=== PATIENT | female | born 1960 | race Two or more races ===

== ENCOUNTER → 2024-04-15 | Outpatient (CLI) | payer OTHER, SELFPAY ==
--- NOTE | 2024-04-15 07:00 | XR_ITS ---
Examination: MRI cervical spine without intravenous contrast Date and time of exam: April 15, 2024 0713 hrs. Indications: Left-sided neck pain radiating down the left arm numbness in the left hand beginning 3 months ago after falling with injury to the neck Technique: Multiple axial and sagittal sections of the cervical spine to been obtained. T2 weighted sagittal sections, TR 3, 270, TE 117 T1-weighted sagittal sections, TR 500, TE 11 T1-weighted axial sections, TR 607, TE 12, axial sections TR 18, TE 27 and T2 weighted transverse sections, TR 3920, TE 122. Findings: Satisfactory alignment cervical vertebral bodies on the lateral view No cervical fracture Adequate marrow signal cervical vertebral bodies Intact odontoid Mild cervical spondylosis Diffuse cervical disc desiccation No localized enlargement cervical cord C2-C3 2 mm central disc protrusion C3-C4 5 mm central disc protrusion indenting the ventral margin cervical cord C4-C5 3 mm central disc protrusion C5-C6 6 mm central disc protrusion indenting the ventral margin cervical cord with mild right neural foraminal stenosis C6-C7 2 mm cervical disc protrusion C7-T1 no disc protrusion Impression: Significant spinal stenosis C3-C4, C5-C6 C3-C4 5 mm central disc protrusion indenting the ventral margin cervical cord C5-C6 6 mm central disc protrusion indenting the ventral margin cervical cord
--- NOTE | 2024-04-15 07:30 | XR_ITS ---
Examination: MRI lumbar spine without contrast Date and time of exam: April 15, 2024 0738 hrs. Indications: Left-sided lower back pain radiating down the left leg paresthesias in the left foot 3 months after injury Technique: Multiple MRI axial and sagittal sections lumbar spine. Sagittal T2-weighted images, TR 3500, TE 118 T1 weighted transverse sections, TR 688 T8.5, T2-weighted sagittal sections T1 weighted sagittal sections TR 621, TE 30 T2 axial sections, TR 4, 190, TE 84. Findings: Adequate alignment lumbar vertebral bodies on the lateral view No lumbar fracture Diffuse lumbar disc desiccation Advanced disc narrowing L1-L2 No spondylolisthesis L5-S1 4 mm central right paracentral disc bulge displacing the right S1 nerve root, extending to both intervertebral foramen with mild bilateral L5 ganglionic compression L4-L5 bilateral foraminal disc bulges with no ganglionic compression L3-L4 no disc protrusion L2-L3 no disc protrusion L1-2 no disc protrusion Impression: L5-S1 4 mm central right paracentral disc bulge displacing the right S1 nerve root, extending to the intervertebral foramen bilaterally with mild bilateral L5 ganglionic compression
== END | disposition home or self-care (01) ==
PROVIDERS: PCP Family Medicine; Referring Provider Family Medicine; Visit Provider Family Medicine
DX: M48.02 Spinal stenosis, cervical region (principal); M50.21 Other cervical disc displacement, high cervical region; M51.379 Other intervertebral disc degeneration, lumbosacral region without mention of lumbar back pain or lower extremity pain; G95.20 Unspecified cord compression; S33.5XXD Sprain of ligaments of lumbar spine, subsequent encounter; S13.4XXD Sprain of ligaments of cervical spine, subsequent encounter; W19.XXXD Unspecified fall, subsequent encounter
CPT/HCPCS: 72141; 72148

== ENCOUNTER → 2024-04-17 | Outpatient (CLI) | payer OTHER, SELFPAY ==
--- NOTE | 2024-04-17 13:15 | XR_ITS ---
Examination: MRI left hip without intravenous contrast. Date and time of exam: April 17, 2024 1359 hours INDICATIONS: Patient fell January 11, 2024 with injury to the left hip, left hip pain Technique: Multiple MRI images of the left hip have been obtained T1 weighted coronal sections, TR 500, TE 12 Proton density coronal fat saturated images, TR 3000, TE 71 T2-weighted coronal images, 5850, TE 104 T1-weighted axial images, TR 521, TE 12 T2-weighted axial fat suppressed images, TR 5730, TE 103. Findings: Adequate marrow signal left hip No left hip bone contusion or occult fracture or avascular necrosis No asymmetric hip effusion Coronal image 14 consistent with small inferior left hip labral tear Visualized bones of the pelvis intact IMPRESSION: No left hip fracture bone contusion or avascular necrosis Small inferior left hip labral tear
== END | disposition home or self-care (01) ==
LOC: SMRI 12:44
PROVIDERS: PCP Family Medicine; Referring Provider Family Medicine; Visit Provider Family Medicine
DX: S73.192D Other sprain of left hip, subsequent encounter (principal); W19.XXXD Unspecified fall, subsequent encounter
CPT/HCPCS: 73721